=== PATIENT | female | born 1970 | race Caucasian/White ===

== ENCOUNTER 2017-01-22 15:15 | Emergency (ER) | payer BC ==
[2017-01-22 15:23] VITALS: BP 150/70
[2017-01-22] MEDS ORDERED: Benzocaine 20% Oral Spray 59.2 ML Canister MUCMEM ONE (15:30)
[2017-01-22] MEDS ORDERED: Lidocaine 2% Viscous Solution 15 ML Cup PO ONE (15:30)
[2017-01-22] MEDS ORDERED: Acetaminophen 325 MG Tab PO ONE (15:30)
--- NOTE | 2017-01-22 15:35 | EDM.PDOC ---
ED HPI ENT - General Chief Complaint: ENT Problem Stated Complaint: EAR INFECTION IN RIGHT EAR Time Seen by Provider: 01/22/17 15:29 Source of Information: Reports: Patient History Limitations: Reports: No limitations - History of Present Illness INITIAL COMMENTS - FREE TEXT/NARRATIVE: 46 yo white female c/o right sided maxillary toothache. Pt. s/p recent dental work. Pt. 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 [No Known Home Meds] 12/31/14 [History] Social & Family History - Tobacco Use Smoking Status *Q: Current Some Day Smoker Years of Tobacco use: 20 Packs/Tins Daily: 0.1 Used Tobacco, but Quit: Yes Month Tobacco Last Used: 01/22 Second Hand Smoke Exposure: No - Caffeine Use Caffeine Use: Reports: Coffee, Soda - Alcohol Use Days Per Week of Alcohol Use: 0 - Recreational Drug Use Recreational Drug Use: No ED ROS ENT - Review of Systems Review Of Systems: See Below Constitutional: Reports: no symptoms HEENT: Reports: Dental pain (right lataral maxillary ), Ear pain (right ear) Respiratory: Reports: No Symptoms Cardiovascular: Reports: No symptoms Endocrine: Reports: no symptoms GI/Abdominal: Reports: No symptoms : Reports: no symptoms Musculoskeletal: Reports: no symptoms Skin: Reports: no symptoms Neurological: Reports: No Symptoms Psychiatric: Reports: No symptoms Hematologic/Lymphatic: Reports: no symptoms Immunologic: Reports: no symptoms ED EXAM, ENT - Physical Exam Exam: See Below Exam Limited By: No limitations General Appearance: alert, WD/WN, no apparent distress Eye Exam: bilateral eye: PERRL Ears: normal external exam, normal canal, normal TMs Nose: normal inspection Mouth/Throat: Normal inspection, Dental tenderness (right maxillary gingival tenderness w/ swelling) Head: atraumatic Neck: normal inspection, supple Respiratory/Chest: no respiratory distress, lungs clear Cardiovascular: normal peripheral pulses, regular rate, rhythm GI/Abdominal: normal bowel sounds, soft Back: normal inspection Extremities: normal inspection Neurological: alert, oriented, CN II-XII intact Psychiatric: normal affect, normal mood Skin: Warm, Dry, Intact, Normal color Lymphatic: no adenopathy Course - Vital Signs Text/Narrative:: discussed with patient Last Recorded V/S: Last Vital Signs Temp 36.7 C 01/22/17 15:22 Pulse 85 01/22/17 15:22 Resp 20 01/22/17 15:22 BP 150/70 H 01/22/17 15:22 Pulse Ox 99 01/22/17 15:22 Departure - Departure Time of Disposition: 15:35 Disposition: Home, Self-Care 01 Condition: good Clinical Impression: Gingivitis, Otalgia, right ear Forms: ED Department Discharge Additional Instructions: Good Oral Hygiene Use Toothballs as directed For pain take Tylenol Extra Strength 500mg QID Continue taking your Clindamycin Antibiotic 300mg QID F/U w/ Dentist
== END 2017-01-22 15:42 | disposition home or self-care (01) ==
LOC: DL.ED 15:15
DX: K05.10 Chronic gingivitis, plaque induced (principal); H92.01 Otalgia, right ear
CPT/HCPCS: 99282; A9270

== ENCOUNTER 2017-06-04 14:53 | Observation (INO) | payer BC ==
[2017-06-04] MEDS: Sodium Chloride 0.9% 500 ML IV STA ×2 (15:48→15:57)
[2017-06-04 16:10] LABS: CHLORIDE,CL 101 mmol/L (101-111); SODIUM,NA 135 mmol/L (135-145)
--- NOTE | 2017-06-04 16:35 | EDM.PDOC ---
ED HPI GENERAL MEDICAL PROBLEM - General Chief Complaint: Fever Stated Complaint: [place] OR INFLUENZA Time Seen by Provider: 06/04/17 15:50 Source of Information: Reports: Patient History Limitations: Reports: No Limitations - History of Present Illness INITIAL COMMENTS - FREE TEXT/NARRATIVE: 47 yo female presents with 2 day history of diarrhea and vomiting with generalized body aches. States that she has not been able to tolerate food but has been attempting to push fluids. No other complaints currently. Onset Date: 06/02/17 Duration: Constant, Getting Worse Location: Reports: Generalized Quality: Reports: Ache Severity: Moderate Improves with: Reports: None Worsens with: Reports: Movement Context: Reports: Activity Associated Symptoms: Reports: Fever/Chills, Headaches, Loss of Appetite, Malaise , Nausea/Vomiting Treatments RRT: Reports: Acetaminophen 10 Pain Score (Numeric/FACES): 10 - Related Data Allergies Allergy/AdvReac Type Severity Reaction Status Date / Time No Known Allergies Allergy Verified 01/30/15 02:35 Home Meds: Home Meds . 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 Musculoskeletal History: Reports: None Neurological History: Reports: None Psychiatric History: Reports: None Endocrine/Metabolic History: Reports: None Hematologic History: Reports: None Immunologic History: Reports: None Oncologic (Cancer) History: Reports: None Dermatologic History: Reports: None - Infectious Disease History Infectious Disease History: Reports: None - Past Surgical History Head Surgeries/Procedures: Reports: None Female Surgical History: Reports: Hysterectomy Social & Family History - Family History Family Medical History: Noncontributory - Tobacco Use Smoking Status *Q: Current Some Day Smoker Years of Tobacco use: 15 Packs/Tins Daily: 0 Used Tobacco, but Quit: Yes Month Tobacco Last Used: 01/22 Second Hand Smoke Exposure: No - Caffeine Use Caffeine Use: Reports: None - Alcohol Use Days Per Week of Alcohol Use: 0 - Recreational Drug Use Recreational Drug Use: No ED ROS GENERAL - Review of Systems Review Of Systems: ROS reveals no pertinent complaints other than HPI. ED EXAM, GI/ABD - Physical Exam Exam: See Below Exam Limited By: No Limitations General Appearance: Alert, WD/WN, No Apparent Distress Eyes: Bilateral: Normal Appearance, EOMI Nose: Normal Inspection, Normal Mucosa, No Blood Throat/Mouth: Normal Inspection, Normal Lips, Normal Teeth, Normal Gums, Normal Oropharynx, Normal Voice, No Airway Compromise Neck: Normal Inspection, Supple, Non-Tender, Full Range of Motion Respiratory/Chest: No Respiratory Distress, Lungs Clear, Normal Breath Sounds, No Accessory Muscle Use, Chest Non-Tender Cardiovascular: Normal Peripheral Pulses, Regular Rate, Rhythm, No Edema, No Gallop, No JVD, No Murmur, No Rub GI/Abdominal Exam: Normal Bowel Sounds, Soft, No Organomegaly, No Abnormal Bruit , No Mass, Pelvis Stable, Distended, Tender Back Exam: Normal Inspection, Full Range of Motion, NT Extremities: Normal Inspection, Normal Range of Motion, Non-Tender, Normal Capillary Refill, No Pedal Edema Neurological: Alert, Oriented, CN II-XII Intact, Normal Cognition, Normal Gait, Normal Reflexes, No Motor/Sensory Deficits Skin Exam: Warm, Dry, Intact, Normal Color, No Rash Course - Vital Signs Last Recorded V/S: Last Vital Signs Temp 100.4 F 06/04/17 15:21 Pulse 129 H 06/04/17 15:21 Resp 20 06/04/17 15:21 BP 131/76 06/04/17 15:21 Pulse Ox 98 06/04/17 15:21 - Orders/Labs/Meds Orders: Active Orders 24 hr Category Date Time Status Abdomen Pelvis w Cont [CT] Urgent Exams 06/04/17 18:37 Ordered Abdomen Series w Chest 1V [CR] Urgent Exams 06/04/17 16:35 Taken CULTURE BLOOD [BC] Stat Lab 06/04/17 15:36 Received CULTURE BLOOD [BC] Stat Lab 06/04/17 15:42 Received CULTURE URINE [RM] Stat Lab 06/04/17 16:56 Received [place] VIRUS IGM [REF] Stat Lab 06/04/17 15:36 Received Iopamidol [Isovue-300 (61%)] Med 06/04/17 18:43 Once 100 ml IVPUSH ONETIME ONE Sodium Chloride 0.9% [Saline Flush] Med 06/04/17 15:29 Active 10 ml FLUSH ASDIRECTED PRN Blood Culture x2 Reflex Set [OM.PC] Stat Oth 06/04/17 15:30 Ordered Saline Lock Insert [OM.PC] Stat Oth 06/04/17 15:29 Ordered Medication Orders Sodium Chloride (Saline Flush) 10 ml FLUSH ASDIRECTED PRN PRN Reason: Keep Vein Open Last Admin: 06/04/17 17:59 Dose: 10 ml Labs: Laboratory Tests 06/04/17 06/04/17 06/04/17 Range/Units 15:36 15:36 15:36 WBC 16.7 H (5.0-10.0) 10^3/uL RBC 4.58 (4.2-5.4) 10^6/uL Hgb 13.5 (12.0-16.0) g/dL Hct 41.0 (37.0-47.0) % MCV 89.5 (80-100) fL MCH 29.5 (27.0-34.0) pg MCHC 32.9 L (33.0-35.0) g/dL Plt Count 228 (150-450) 10^3/uL Neut % (Auto) 84.8 H (42.2-75.2) % Lymph % (Auto) 4.3 L (20.5-50.1) % Cam[place] % (Auto) 10.7 H (2-8) % Eos % (Auto) 0.1 L (1.0-3.0) % Baso % (Auto) 0.1 (0.0-1.0) % Sodium 135 (135-145) mmol/L Potassium 3.7 (3.6-5.0) mmol/L Chloride 101 (101-111) mmol/L Carbon Dioxide 21.0 (21.0-31.0) mmol/L Anion Gap 16.7 BUN 9 (7-18) mg/dL Creatinine 0.8 (0.6-1.3) mg/dL Est Cr Clr Drug Dosing TNP Estimated GFR (MDRD) > 60 BUN/Creatinine Ratio 11.25 Glucose 129 H (74-105) mg/dL Lactic Acid 0.9 (0.5-2.2) mmol/L Calcium 8.7 (8.4-10.2) mg/dl Total Bilirubin 0.5 (0.2-1.0) mg/dL AST 35 (10-42) IU/L ALT 59 (10-60) IU/L Alkaline Phosphatase 69 (42-121) IU/L Total Protein 7.2 (6.7-8.2) g/dl Albumin 3.5 (3.2-5.5) g/dl Globulin 3.7 Albumin/Globulin Ratio 0.95 Urine Color (YELLOW) Urine Appearance (CLEAR) Urine pH (5.0-9.0) Ur Specific Garnett (1.005-1.030) Urine Protein (NEGATIVE) Urine Glucose (UA) (NEGATIVE) Urine Ketones (NEGATIVE) Urine Occult Blood (NEGATIVE) Urine Nitrite (NEGATIVE) Urine Bilirubin (NEGATIVE) Urine Urobilinogen (0.2-1.0) mg/dL Ur Leukocyte Esterase (NEGATIVE) Urine RBC /HPF Urine WBC (0-5/HPF) /HPF Ur Epithelial Cells /HPF Urine Bacteria (0-FEW/HPF) /HPF Urine Mucus /LPF Urine HCG, Qual 06/04/17 06/04/17 Range/Units 16:56 16:56 WBC (5.0-10.0) 10^3/uL RBC (4.2-5.4) 10^6/uL Hgb (12.0-16.0) g/dL Hct (37.0-47.0) % MCV (80-100) fL MCH (27.0-34.0) pg MCHC (33.0-35.0) g/dL Plt Count (150-450) 10^3/uL Neut % (Auto) (42.2-75.2) % Lymph % (Auto) (20.5-50.1) % Cam[place] % (Auto) (2-8) % Eos % (Auto) (1.0-3.0) % Baso % (Auto) (0.0-1.0) % Sodium (135-145) mmol/L Potassium (3.6-5.0) mmol/L Chloride (101-111) mmol/L Carbon Dioxide (21.0-31.0) mmol/L Anion Gap BUN (7-18) mg/dL Creatinine (0.6-1.3) mg/dL Est Cr Clr Drug Dosing Estimated GFR (MDRD) BUN/Creatinine Ratio Glucose (74-105) mg/dL Lactic Acid (0.5-2.2) mmol/L Calcium (8.4-10.2) mg/dl Total Bilirubin (0.2-1.0) mg/dL AST (10-42) IU/L ALT (10-60) IU/L Alkaline Phosphatase (42-121) IU/L Total Protein (6.7-8.2) g/dl Albumin (3.2-5.5) g/dl Globulin Albumin/Globulin Ratio Urine Color Yellow (YELLOW) Urine Appearance Slightly cloudy (CLEAR) Urine pH 6.0 (5.0-9.0) Ur Specific Garnett 1.010 (1.005-1.030) Urine Protein Negative (NEGATIVE) Urine Glucose (UA) Negative (NEGATIVE) Urine Ketones Negative (NEGATIVE) Urine Occult Blood Small H (NEGATIVE) Urine Nitrite Negative (NEGATIVE) Urine Bilirubin Negative (NEGATIVE) Urine Urobilinogen 0.2 (0.2-1.0) mg/dL Ur Leukocyte Esterase Trace H (NEGATIVE) Urine RBC 5-10 H /HPF Urine WBC 10-20 H (0-5/HPF) /HPF Ur Epithelial Cells Moderate H /HPF Urine Bacteria Moderate H (0-FEW/HPF) /HPF Urine Mucus Few H /LPF Urine HCG, Qual Negative Meds: Medications Generic Name Dose Route Start Last Admin Trade Name Freq PRN Reason Stop Dose Admin Sodium Chloride 10 ml 06/04/17 15:29 06/04/17 17:59 Saline Flush FLUSH 10 ml ASDIRECTED PRN Administration Keep Vein Open Discontinued Medications Generic Name Dose Route Start Last Admin Trade Name Freq PRN Reason Stop Dose Admin Sodium Chloride 500 mls @ 1,000 mls/hr 06/04/17 15:29 06/04/17 15:57 Normal Saline IV 06/04/17 15:58 Not Given .BOLUS STA Ketorolac Tromethamine 30 mg 06/04/17 17:22 06/04/17 17:57 Toradol IM 06/04/17 17:23 30 mg ONETIME ONE Administration Trimethoprim/Sulfamethoxazole 1 tab 06/04/17 18:28 06/04/17 18:33 Septra Ds PO 06/04/17 18:29 1 tab ONETIME ONE Administration - Radiology Interpretation Free Text/Narrative:: multiple air fluid levels and dilated loops of bowel per radiology, can not exclude ileus or partial obstruction. - Re-Assessments/Exams Free Text/Narrative Re-Assessment/Exam: 06/04/17 18:[address] Dowmi who request at CT scan. Agrees to admit for observation. Departure - Departure Time of Disposition: 18:44 Disposition: Refer to Observation Condition: Good Clinical Impression: Ileus - Discharge Information Forms: ED Department Discharge - My Orders Last 24 Hours: My Active Orders 06/04/17 15:29 Sodium Chloride 0.9% [Saline Flush] 10 ml FLUSH ASDIRECTED PRN Saline Lock Insert [OM.PC] Stat 06/04/17 15:30 Blood Culture x2 Reflex Set [OM.PC] Stat 06/04/17 15:36 CULTURE BLOOD [BC] Stat [place] [place] VIRUS IGM [REF] Stat 06/04/17 15:42 CULTURE BLOOD [BC] Stat 06/04/17 16:35 Abdomen Series w Chest 1V [CR] Urgent 06/04/17 16:56 CULTURE URINE [RM] Stat 06/04/17 18:37 Abdomen Pelvis w Cont [CT] Urgent 06/04/17 18:43 Iopamidol [Isovue-300 (61%)] 100 ml IVPUSH ONETIME ONE - Assessment/Plan Last 24 Hours: My Active Orders 06/04/17 15:29 Sodium Chloride 0.9% [Saline Flush] 10 ml FLUSH ASDIRECTED PRN Saline Lock Insert [OM.PC] Stat 06/04/17 15:30 Blood Culture x2 Reflex Set [OM.PC] Stat 06/04/17 15:36 CULTURE BLOOD [BC] Stat [place] VIRUS IGM [REF] Stat 06/04/17 15:42 CULTURE BLOOD [BC] Stat 06/04/17 16:35 Abdomen Series w Chest 1V [CR] Urgent 06/04/17 16:56 CULTURE URINE [RM] Stat 06/04/17 18:37 Abdomen Pelvis w Cont [CT] Urgent 06/04/17 18:43 Iopamidol [Isovue-300 (61%)] 100 ml IVPUSH ONETIME ONE
[2017-06-04] MEDS ORDERED: Ketorolac 30 MG/ML SDV IM ONE (17:22)
[2017-06-04] MEDS: Sodium Chloride 0.9% 10 ML Syringe FLUSH PRN ×2 (17:59→20:25)
[2017-06-04] MEDS ORDERED: Sulfamethoxazole/Trimethoprim 800-160 MG Tab PO ONE (18:28)
[2017-06-04] MEDS ORDERED: Iopamidol 612 MG/ML 100 ML Bottle IVPUSH ONE (18:43)
[2017-06-04 19:37] VITALS: BP 136/83
[2017-06-04] MEDS ORDERED: Pantoprazole 40 MG Tab.CR PO SCH (20:15)
[2017-06-04] MEDS ORDERED: Zolpidem 5 MG Tab PO PRN (20:22)
[2017-06-04] MEDS ORDERED: Morphine 2 MG/ML Syringe IVPUSH PRN (20:22)
[2017-06-04] MEDS ORDERED: oxyCODONE 5 MG Tab PO PRN (20:22)
[2017-06-04] MEDS ORDERED: Sodium Chloride 0.9% 10 ML Syringe FLUSH PRN (20:22)
[2017-06-04] MEDS ORDERED: Ondansetron 4 MG Tab.DIS PO PRN (20:22)
[2017-06-04] MEDS ORDERED: Ondansetron 4 MG/2 ML SDV IVPUSH PRN (20:22)
[2017-06-04] MEDS ORDERED: Acetaminophen 325 MG Tab PO PRN (20:22)
[2017-06-04] MEDS ORDERED: cefTRIAXone 1 GM in Sodium Chloride 0.9% 50 ML IV SCH (20:30)
--- NOTE | 2017-06-04 21:07 | PCM.HP ---
H&P History of Present Illness - General Date of Service: 06/04/17 Admit Problem/Dx: Admission Diagnosis/Problem Admission Diagnosis/Problem Diarrhea Source of Information: Patient - History of Present Illness Initial Comments - Free Text/Narative: The patient is a 47-year-old lady who has history of seasonal allergies. The patient came to the emergency room complaining of fever, chills, nausea and vomiting. The patient has been complaining of on and off abdominal pain for about a month. She had a day of diarrhea about 3 days ago that has resolved. The stool was watery. Not black, not bloody. On the day of admission the patient has been experiencing subjective fever, nausea and vomiting. She has no urinary burning but "feels warm urine". Feels bloated and generalized abdominal pain. Complains of headache. She feels stuffy nose that has been chronic and has been taking allergy medication for. 10 Pain Score (Numeric/FACES): 10 - Related Data Allergies/Adverse Reactions: Allergies Allergy/AdvReac Type Severity Reaction Status Date / Time No Known Allergies Allergy Verified 01/30/15 02:35 Home Medications: Home Meds . 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 OB/BYN History: 2 nvd Musculoskeletal History: Reports: Arthritis, Fibromyalgia Neurological History: Reports: Concussion Psychiatric History: Reports: Depression Endocrine/Metabolic History: Reports: None Hematologic History: Reports: None Immunologic History: Reports: None Oncologic (Cancer) History: Reports: None Dermatologic History: Reports: None - Infectious Disease History Infectious Disease History: Reports: Chicken Pox - Past Surgical History Head Surgeries/Procedures: Reports: None HEENT Surgical History: Reports: None Respiratory Surgical History: Reports: None GI Surgical History: Reports: None Female Surgical History: Reports: Hysterectomy Musculoskeletal Surgical History: Reports: None Social & Family History - Family History Family Medical History: Noncontributory - Tobacco Use Smoking Status *Q: Current Some Day Smoker Years of Tobacco use: 28 Packs/Tins Daily: 1 Used Tobacco, but Quit: Yes Month Tobacco Last Used: 01/22 Second Hand Smoke Exposure: No - Caffeine Use Caffeine Use: Reports: None - Alcohol Use Days Per Week of Alcohol Use: 0 - Recreational Drug Use Recreational Drug Use: No H&P Review of Systems - Review of Systems: Review Of Systems: See Below General: Reports: Fever, Chills, Malaise, Weakness Pulmonary: Denies: Shortness of Breath Cardiovascular: Denies: Chest Pain Gastrointestinal: Reports: Abdominal Pain, Nausea, Vomiting Genitourinary: Reports: Burning. Denies: Dysuria, Frequency Psychiatric: Denies: Confusion Exam - Exam Exam: See Below - Vital Signs Vital Signs: Last Vital Signs Temp 38.6 C H 06/04/17 19:32 Pulse 116 H 06/04/17 19:32 Resp 16 06/04/17 19:32 BP 136/83 06/04/17 19:32 Pulse Ox 100 06/04/17 19:32 Weight: 45.994 kg - Exam Quality Assessment: Other (The patient is alert and oriented but very poor historian.) General: Alert, Oriented Neck: Supple Lungs: Clear to Auscultation, Normal Respiratory Effort Cardiovascular: Regular Rate, Regular Rhythm GI/Abdominal Exam: Normal Bowel Sounds, Soft, Tender (Moderately diffusely tender). No: Guarding, Rigid, Rebound Extremities: No Pedal Edema Skin: Warm, Dry, Intact Neuro Extensive - Mental Status: Alert, Oriented x3, Normal Mood/Affect - Patient Data Result Diagrams: 06/04/17 15:36 06/04/17 15:36 *Q Meaningful Use (ADM) - VTE *Q VTE Criteria *Q: - Stroke *Q Stroke Criteria *Q: - AMI *Q AMI Criteria *Q: Problem List Initiated/Reviewed/Updated: Yes Orders Last 24hrs: Active Orders 24 hr Category Date Time Status Patient Status [ADT] Routine ADT 06/04/17 20:11 Ordered Antiembolic Devices [RC] PER UNIT ROUTINE Care 06/04/17 20:23 Ordered Oxygen Therapy [RC] PRN Care 06/04/17 20:11 Ordered Peripheral IV Care [RC] . DIRECTED Care 06/04/17 20:23 Ordered Up With Assistance [RC] ASDIRECTED Care 06/04/17 20:11 Ordered Up ad Rody [RC] ASDIRECTED Care 06/04/17 20:11 Ordered VTE/DVT Education [RC] PER UNIT ROUTINE Care 06/04/17 20:11 Ordered Vital Signs [RC] Q4H Care 06/04/17 20:11 Ordered Clear Liquid Diet [DIET] Diet 06/04/17 Breakfast Ordered BASIC METABOLIC PANEL,BMP [CHEM] AM Lab 06/05/17 05:15 Ordered C DIFFICILE TOXIN BY PCR [MREF] Routine Lab 06/04/17 20:09 Uncollected CBC WITH AUTO DIFF [HEME] AM Lab 06/05/17 05:15 Ordered Acetaminophen [Tylenol] Med 06/04/17 20:22 Ordered 650 mg PO Q4H PRN Heparin Sodium Med 06/04/17 22:00 Ordered 5,000 units SUBCUT Q8HR Morphine Med 06/04/17 20:22 Ordered 1 mg IVPUSH Q2H PRN Ondansetron [Zofran ODT] Med 06/04/17 20:22 Ordered 4 mg PO Q6H PRN Ondansetron [Zofran] Med 06/04/17 20:22 Ordered 4 mg IVPUSH Q6H PRN Pantoprazole [ProTONIX] Med 06/04/17 20:15 Ordered 40 mg PO BIDAC Sodium Chloride 0.9% [Saline Flush] Med 06/04/17 20:22 Ordered 10 ml FLUSH ASDIRECTED PRN Zolpidem [Ambien] Med 06/04/17 20:22 Ordered 5 mg PO BEDTIME PRN cefTRIAXone [Rocephin] 1 gm Med 06/04/17 20:30 Active Sodium Chloride 0.9% [Normal Saline] 50 ml IV Q24H oxyCODONE Med 06/04/17 20:22 Ordered 5 mg PO Q4H PRN Antiembolic Hose [OM.PC] Per Unit Routine Oth 06/04/17 20:14 Ordered Peripheral IV Insertion Adult [OM.PC] Routine Oth 06/04/17 20:11 Ordered Resuscitation Status Routine Resus Stat 06/04/17 20:11 Ordered Medication Orders Acetaminophen (Tylenol) 650 mg PO Q4H PRN PRN Reason: Pain (Mild 1-3)/fever Heparin Sodium (Porcine) (Heparin Sodium) 5,000 units SUBCUT Q8HR ALBERTO Ceftriaxone Sodium 1 gm/ (Sodium Chloride) 50 mls @ 100 mls/hr IV Q24H ALBERTO Last Admin: 06/04/17 20:24 Dose: 100 mls/hr Morphine Sulfate (Morphine) 1 mg IVPUSH Q2H PRN PRN Reason: Pain (severe 7-10) Last Admin: 06/04/17 20:44 Dose: 1 mg Ondansetron HCl (Zofran Odt) 4 mg PO Q6H PRN PRN Reason: nausea, able to take PO Ondansetron HCl (Zofran) 4 mg IVPUSH Q6H PRN PRN Reason: Nausea/Vomiting Oxycodone HCl (Oxycodone) 5 mg PO Q4H PRN PRN Reason: Pain (moderate 4-6) Pantoprazole Sodium (Protonix) 40 mg PO BIDAC ALBERTO Last Admin: 06/04/17 20:26 Dose: 40 mg Sodium Chloride (Saline Flush) 10 ml FLUSH ASDIRECTED PRN PRN Reason: Keep Vein Open Last Admin: 06/04/17 20:25 Dose: 10 ml Admin: 06/04/17 17:59 Dose: 10 ml Sodium Chloride (Saline Flush) 10 ml FLUSH ASDIRECTED PRN PRN Reason: Keep Vein Open Zolpidem Tartrate (Ambien) 5 mg PO BEDTIME PRN PRN Reason: Sleep Assessment/Plan Comment:: #1 the patient presented with nausea vomiting, fever Appears to have sepsis due to urinary tract infection Will obtain blood culture and urine culture Start the patient on ceftriaxone #2 abdominal pain, nausea and vomiting The patient is very poor historian is difficult to get that good history on x- ray of the abdomen there was question of dilated bowel loops We will obtain CT of the abdomen for further evaluation #3 we will hydrate the patient follow electrolytes Use antiemetics as needed Clear liquid diet #4 DVT prophylaxis will be with subcutaneous heparin
--- NOTE | 2017-06-04 21:13 | PCM.DCSUM1 ---
Discharge Summary - Hospital Course Free Text/Narrative:: The patient is a 47-year-old lady who presented with fever, nausea vomiting, generalized malaise abdominal discomfort. The patient was admitted and started treatment for urinary tract infection with ceftriaxone 1 g Since the patient was also complaining of abdominal pain be obtained a CT of the abdomen with IV contrast without by mouth contrast. This described "hydronephrosis right kidney with ureterectasis of the proximal half of the right ureter" The patient did complain of right sided abdomen and groin pain. There was no stone noted on the CT There was no mass noted on CT to cause the obstruction With the concern of hydronephrosis of unknown etiology and urinary tract infection I have contacted urology in [place]. Discussed with Dr. Toure. He recommended IV antibiotics and given the significant risk of sepsis with possible urinary tract obstruction and infection he recommended percutaneous nephrostomy by IR. Since urology service and IR is not available in our Hospital I have contacted hospitalists at [facility] in [place] who accepted the patient for transfer. Discussed the above with the patient. Will request ambulance transfer to continue IV fluid and close monitoring. - Discharge Data Discharge Date: 06/04/17 Discharge Disposition: DC/Tfer to Acute Hospital 02 Condition: Good - Patient Instructions Diet: NPO Activity: Bedrest - Discharge Plan Home Medications: Home Meds . [No Known Home Meds] 12/31/14 [History] - Discharge Summary/Plan Comment DC Time >30 min.: Yes (Arranging transfer, discussion with dr. Geronimo, Dr. Toure, pt) - General Info Date of Service: 06/04/17 - Review of Systems General: Reports: Fever, Weakness Pulmonary: Denies: Shortness of Breath Cardiovascular: Denies: Chest Pain, Palpitations Gastrointestinal: Reports: Abdominal Pain Neurological: Denies: Confusion - Patient Data Vitals - Most Recent: Last Vital Signs Temp 38.6 C H 06/04/17 19:32 Pulse 116 H 06/04/17 19:32 Resp 16 06/04/17 19:32 BP 136/83 06/04/17 19:32 Pulse Ox 100 06/04/17 19:32 Weight - Most Recent: 45.994 kg Med Orders - Current: Current Medications Acetaminophen (Tylenol) 650 mg PO Q4H PRN PRN Reason: Pain (Mild 1-3)/fever Heparin Sodium (Porcine) (Heparin Sodium) 5,000 units SUBCUT Q8HR [facility] Ceftriaxone Sodium 1 gm/ (Sodium Chloride) 50 mls @ 100 mls/hr IV Q24H [facility] Last Admin: 06/04/17 20:24 Dose: 100 mls/hr Morphine Sulfate (Morphine) 1 mg IVPUSH Q2H PRN PRN Reason: Pain (severe 7-10) Last Admin: 06/04/17 20:44 Dose: 1 mg Ondansetron HCl (Zofran Odt) 4 mg PO Q6H PRN PRN Reason: nausea, able to take PO Ondansetron HCl (Zofran) 4 mg IVPUSH Q6H PRN PRN Reason: Nausea/Vomiting Oxycodone HCl (Oxycodone) 5 mg PO Q4H PRN PRN Reason: Pain (moderate 4-6) Pantoprazole Sodium (Protonix) 40 mg PO BIDAC [facility] Last Admin: 06/04/17 20:26 Dose: 40 mg Sodium Chloride (Saline Flush) 10 ml FLUSH ASDIRECTED PRN PRN Reason: Keep Vein Open Last Admin: 06/04/17 20:25 Dose: 10 ml Sodium Chloride (Saline Flush) 10 ml FLUSH ASDIRECTED PRN PRN Reason: Keep Vein Open Zolpidem Tartrate (Ambien) 5 mg PO BEDTIME PRN PRN Reason: Sleep Discontinued Medications Sodium Chloride (Normal Saline) 500 mls @ 1,000 mls/hr IV .BOLUS STA Stop: 06/04/17 15:58 Last Admin: 06/04/17 15:57 Dose: Not Given Iopamidol (Isovue-300 (61%)) 100 ml IVPUSH ONETIME ONE Stop: 06/04/17 18:44 Last Admin: 06/04/17 18:55 Dose: 100 ml Ketorolac Tromethamine (Toradol) 30 mg IM ONETIME ONE Stop: 06/04/17 17:23 Last Admin: 06/04/17 17:57 Dose: 30 mg Trimethoprim/Sulfamethoxazole (Septra Ds) 1 tab PO ONETIME ONE Stop: 06/04/17 18:29 Last Admin: 06/04/17 18:33 Dose: 1 tab - Exam General: Reports: Alert, Oriented Lungs: Reports: Clear to Auscultation Cardiovascular: Reports: Regular Rate, Regular Rhythm GI/Abdominal Exam: Tender (Moderate, diffuse) Extremities: No Pedal Edema Skin: Reports: Warm, Dry *Q Meaningful Use (DIS) - VTE *Q VTE Criteria *Q: - Stroke *Q Stroke Criteria *Q: - AMI *Q AMI Criteria *Q:
[2017-06-04] MEDS ORDERED: Heparin Sodium 5,000 Units/ML Vial SUBCUT SCH (22:00)
== END 2017-06-04 22:06 ==
LOC: DL.ED 14:53 → DL.MS 19:04
PROVIDERS: ADMIT Internal Medicine; ATTEND Internal Medicine
DX: N39.0 Urinary tract infection, site not specified (principal); N13.30 Unspecified hydronephrosis; M19.90 Unspecified osteoarthritis, unspecified site; M79.7 Fibromyalgia; F17.210 Nicotine dependence, cigarettes, uncomplicated; Z90.710 Acquired absence of both cervix and uterus
CPT/HCPCS: 36415; 74022; 74177; 80053; 81001; 81025; 83605; 85025; 86788; 87040; 87086; 87088; 87186; 87804; 96360; 96372; 99285; A9270; J0696; J1885; J2270; J7050; Q9967; 96361; 96374; G0378

== ENCOUNTER 2017-07-11 03:13 | Emergency (ER) | payer BC ==
[2017-07-11 03:25] VITALS: BP 125/68
--- NOTE | 2017-07-11 03:47 | EDM.PDOC ---
ED HPI GENERAL MEDICAL PROBLEM - General Chief Complaint: Lower Extremity Injury/Pain Stated Complaint: R THIGH PAIN Time Seen by Provider: 07/11/17 03:38 Source of Information: Reports: Patient History Limitations: Reports: No Limitations - History of Present Illness INITIAL COMMENTS - FREE TEXT/NARRATIVE: c/o right upper thigh groin pain since placement of ureteral stent on . No fever or chills. Notes generalized malaise, lowback pain, body aches, loss of appetite and nausea. Had been given hydrocodone following procedure. Patient notes took one and made her feel funny so flushed the resst. Has been trying tylenol without relief. 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 Musculoskeletal History: Reports: None Neurological History: Reports: None Psychiatric History: Reports: None Endocrine/Metabolic History: Reports: None Hematologic History: Reports: None Immunologic History: Reports: None Oncologic (Cancer) History: Reports: None Dermatologic History: Reports: None - Infectious Disease History Infectious Disease History: Reports: None - Past Surgical History Head Surgeries/Procedures: Reports: None Female Surgical History: Reports: Hysterectomy Social & Family History - Family History Family Medical History: Noncontributory - Tobacco Use Smoking Status *Q: Current Some Day Smoker Years of Tobacco use: 15 Packs/Tins Daily: 0 Used Tobacco, but Quit: Yes Month Tobacco Last Used: 01/22 Second Hand Smoke Exposure: No - Caffeine Use Caffeine Use: Reports: None - Alcohol Use Days Per Week of Alcohol Use: 0 - Recreational Drug Use Recreational Drug Use: No Review of Systems - Review of Systems Review Of Systems: ROS reveals no pertinent complaints other than HPI. ED EXAM, GENERAL - Physical Exam Exam: See Below Exam Limited By: No Limitations General Appearance: Alert, Mild Distress Eye Exam: Bilateral Eye: EOMI Ears: Normal External Exam, Normal TMs Nose: Normal Inspection Throat/Mouth: Normal Inspection Head: Atraumatic, Normocephalic Neck: Normal Inspection Respiratory/Chest: No Respiratory Distress, Lungs Clear, Normal Breath Sounds Cardiovascular: Normal Peripheral Pulses, Regular Rate, Rhythm GI/Abdominal: Normal Bowel Sounds, Soft, No Distention, Tender (RLQ) Back Exam: Other (bilateral sacral tenderness, mild SI discomfort on right with deep palpation) Extremities: Normal Inspection, Normal Range of Motion, Leg Pain (right upper lateral thigh ) Neurological: Alert, Oriented, Normal Cognition Psychiatric: Normal Affect, Normal Mood Course - Vital Signs Last Recorded V/S: Last Vital Signs Temp 97.3 F 07/11/17 03:21 Pulse 70 07/11/17 03:21 Resp 20 07/11/17 03:21 BP 125/68 07/11/17 03:21 Pulse Ox 96 07/11/17 03:21 - Orders/Labs/Meds Orders: Active Orders 24 hr Category Date Time Status CULTURE BLOOD [BC] Stat Lab 07/11/17 03:55 Received CULTURE URINE [RM] Stat Lab 07/11/17 04:02 Received Labs: Laboratory Tests 07/11/17 07/11/17 07/11/17 Range/Units 03:55 03:55 03:55 WBC 12.0 H (5.0-10.0) 10^3/uL RBC 4.77 (4.2-5.4) 10^6/uL Hgb 13.5 (12.0-16.0) g/dL Hct 43.3 (37.0-47.0) % MCV 90.8 (80-100) fL MCH 28.3 (27.0-34.0) pg MCHC 31.2 L (33.0-35.0) g/dL Plt Count 426 D (150-450) 10^3/uL Neut % (Auto) 66.7 (42.2-75.2) % Lymph % (Auto) 22.7 (20.5-50.1) % [place] % (Auto) 7.1 (2-8) % Eos % (Auto) 3.3 H (1.0-3.0) % Baso % (Auto) 0.2 (0.0-1.0) % Sodium 137 (135-145) mmol/L Potassium 4.2 (3.6-5.0) mmol/L Chloride 102 (101-111) mmol/L Carbon Dioxide 27.0 (21.0-31.0) mmol/L Anion Gap 12.2 BUN 14 (7-18) mg/dL Creatinine 0.7 (0.6-1.3) mg/dL Est Cr Clr Drug Dosing TNP Estimated GFR (MDRD) > 60 BUN/Creatinine Ratio 20.00 Glucose 111 H (74-105) mg/dL Lactic Acid 0.9 (0.5-2.2) mmol/L Calcium 9.5 (8.4-10.2) mg/dl Total Bilirubin 0.3 (0.2-1.0) mg/dL AST 29 (10-42) IU/L ALT 34 (10-60) IU/L Alkaline Phosphatase 69 (42-121) IU/L Total Protein 6.9 (6.7-8.2) g/dl Albumin 3.5 (3.2-5.5) g/dl Globulin 3.4 Albumin/Globulin Ratio 1.03 Amylase 50 (28-100) U/L Lipase 39 (22-51) U/L Urine Color (YELLOW) Urine Appearance (CLEAR) Urine pH (5.0-9.0) Ur Specific [place] (1.005-1.030) Urine Protein (NEGATIVE) Urine Glucose (UA) (NEGATIVE) Urine Ketones (NEGATIVE) Urine Occult Blood (NEGATIVE) Urine Nitrite (NEGATIVE) Urine Bilirubin (NEGATIVE) Urine Urobilinogen (0.2-1.0) mg/dL Ur Leukocyte Esterase (NEGATIVE) Urine RBC /HPF Urine WBC (0-5/HPF) /HPF Ur Epithelial Cells /HPF Urine Bacteria (0-FEW/HPF) /HPF Urinalysis Comment Urine HCG, Qual 07/11/17 07/11/17 Range/Units 04:02 04:02 WBC (5.0-10.0) 10^3/uL RBC (4.2-5.4) 10^6/uL Hgb (12.0-16.0) g/dL Hct (37.0-47.0) % MCV (80-100) fL MCH (27.0-34.0) pg MCHC (33.0-35.0) g/dL Plt Count (150-450) 10^3/uL Neut % (Auto) (42.2-75.2) % Lymph % (Auto) (20.5-50.1) % [place] % (Auto) (2-8) % Eos % (Auto) (1.0-3.0) % Baso % (Auto) (0.0-1.0) % Sodium (135-145) mmol/L Potassium (3.6-5.0) mmol/L Chloride (101-111) mmol/L Carbon Dioxide (21.0-31.0) mmol/L Anion Gap BUN (7-18) mg/dL Creatinine (0.6-1.3) mg/dL Est Cr Clr Drug Dosing Estimated GFR (MDRD) BUN/Creatinine Ratio Glucose (74-105) mg/dL Lactic Acid (0.5-2.2) mmol/L Calcium (8.4-10.2) mg/dl Total Bilirubin (0.2-1.0) mg/dL AST (10-42) IU/L ALT (10-60) IU/L Alkaline Phosphatase (42-121) IU/L Total Protein (6.7-8.2) g/dl Albumin (3.2-5.5) g/dl Globulin Albumin/Globulin Ratio Amylase (28-100) U/L Lipase (22-51) U/L Urine Color Yellow (YELLOW) Urine Appearance Turbid (CLEAR) Urine pH 6.0 (5.0-9.0) Ur Specific [place] 1.025 (1.005-1.030) Urine Protein 30 H (NEGATIVE) Urine Glucose (UA) Negative (NEGATIVE) Urine Ketones Negative (NEGATIVE) Urine Occult Blood Large H (NEGATIVE) Urine Nitrite Negative (NEGATIVE) Urine Bilirubin Negative (NEGATIVE) Urine Urobilinogen 0.2 (0.2-1.0) mg/dL Ur Leukocyte Esterase Moderate H (NEGATIVE) Urine RBC >100 H /HPF Urine WBC >100 H (0-5/HPF) /HPF Ur Epithelial Cells Many H /HPF Urine Bacteria Many H (0-FEW/HPF) /HPF Urinalysis Comment Urine HCG, Qual Negative Meds: Medications Discontinued Medications Generic Name Dose Route Start Last Admin Trade Name Freq PRN Reason Stop Dose Admin Sodium Chloride 1,000 mls @ 999 mls/hr 07/11/17 04:59 07/11/17 05:11 Normal Saline IV 07/11/17 05:59 999 mls/hr .BOLUS ONE Administration Levofloxacin/Dextrose 750 mg/ 150 mls @ 100 mls/hr 07/11/17 05:03 07/11/17 05 :25 Premix IV 07/11/17 06:32 100 mls/hr ONETIME ONE Administration Iopamidol 75 ml 07/11/17 04:10 07/11/17 04:35 Isovue-300 (61%) IVPUSH 07/11/17 04:11 75 ml ONETIME ONE Administration Ketorolac Tromethamine 30 mg 07/11/17 04:59 07/11/17 05:16 Toradol IVPUSH 07/11/17 05:00 30 mg ONETIME ONE Administration Ondansetron HCl 4 mg 07/11/17 04:59 07/11/17 05:12 Zofran IV 07/11/17 05:00 4 mg ONETIME ONE Administration - Radiology Interpretation Free Text/Narrative:: CT abdomen: Hepatomegaly, hepatic steatosis, cholelithiasis, moderate right hydronephrosis and proximal right hydroureter with interval placement. Right pyelitis/ureteritis. Two 1.7 left adenexal cystic lesion, Incomplete urinary bladder distention with prominenet wall. of a right ureteral stent, Departure - Departure Time of Disposition: 06:00 Disposition: Home, Self-Care 01 Condition: Fair Clinical Impression: Pyelitis Pain due to ureteral stent Qualifiers: Encounter type: initial encounter Qualified Code(s): T83.84XA - Pain due to genitourinary prosthetic devices, implants and grafts, initial encounter - Discharge Information Instructions: Pyelonephritis, Adult, [id number] Forms: ED Department Discharge Additional Instructions: cipro 500mg one twice daily for one week zofran 4mg ODT one every 4 hours as needed for nausea percocet 5/325 one every 6 hours as needed for discomfort Diflucan 150mg one today and repeat in 3 days Follow up with urologist today Urgent follow up if increased pain and fever
[2017-07-11] MEDS ORDERED: Iopamidol 612 MG/ML 75 ML Bottle IVPUSH ONE (04:10)
[2017-07-11 04:22] LABS: CHLORIDE,CL 102 mmol/L (101-111); SODIUM,NA 137 mmol/L (135-145)
[2017-07-11] MEDS ORDERED: Sodium Chloride 0.9% 1,000 ML IV ONE (04:59)
[2017-07-11] MEDS ORDERED: Ondansetron 4 MG/2 ML SDV IV ONE (04:59)
[2017-07-11] MEDS ORDERED: Ketorolac 30 MG/ML SDV IVPUSH ONE (04:59)
[2017-07-11] MEDS ORDERED: Levofloxacin/Dextrose 5%-Water 750 MG in Premix Bag 1 BAG IV ONE (05:03)
== END 2017-07-11 07:10 | disposition home or self-care (01) ==
LOC: DL.ED 03:13
DX: T83.84XA Pain due to genitourinary prosthetic devices, implants and grafts, initial encounter (principal); N12 Tubulo-interstitial nephritis, not specified as acute or chronic; N13.30 Unspecified hydronephrosis; R16.0 Hepatomegaly, not elsewhere classified; K80.20 Calculus of gallbladder without cholecystitis without obstruction; Z96.0 Presence of urogenital implants; Z90.710 Acquired absence of both cervix and uterus; Z87.891 Personal history of nicotine dependence
CPT/HCPCS: 36415; 74177; 80053; 81001; 81025; 82150; 83605; 83690; 85025; 87040; 87086; 96365; 96366; 96375; 99284; J1885; J1956; J2405; J7030; Q9967

== ENCOUNTER 2017-11-25 22:20 | Emergency (ER) | payer BC | END 2017-11-25 22:43 | disposition left against medical advice (07) | LOC: DL.ED 22:20 | DX: Z53.21 Procedure and treatment not carried out due to patient leaving prior to being seen by health care provider (principal) ==

== ENCOUNTER 2017-12-03 15:44 | Emergency (ER) | payer BC ==
[2017-12-03 15:57] VITALS: BP 142/74
[2017-12-03] MEDS ORDERED: Azithromycin 250 MG Tab PO ONE (16:11)
--- NOTE | 2017-12-03 16:13 | EDM.PDOC ---
ED HPI GENERAL MEDICAL PROBLEM - General Chief Complaint: ENT Problem Stated Complaint: SICK [id number] Time Seen by Provider: 12/03/17 16:00 Source of Information: Reports: Patient History Limitations: Reports: No Limitations - History of Present Illness INITIAL COMMENTS - FREE TEXT/NARRATIVE: Pt presents to the ER with c/o left ear pain and sinus congestion and pain. She states this has been going on for about 3 days. Patient denies N/V/D, chest pain , SOB. She states a few days ago she had fever and chills. She admits to a non- productive cough. Patient states she just does not feel well. Onset: Gradual Location: Reports: Head, Face Quality: Reports: Ache, Throbbing Severity: Moderate Improves with: Reports: None Worsens with: Reports: None Associated Symptoms: Reports: Cough, Fever/Chills, Headaches, Loss of Appetite Left Ear Pain Score (Numeric/FACES): 10 - Related Data Allergies Allergy/AdvReac Type Severity Reaction Status Date / Time No Known Allergies Allergy Verified 07/11/17 03:25 Home Meds: Home Meds . [No Known Home Meds] 12/31/14 [History] Past Medical History HEENT History: Reports: None Cardiovascular History: Reports: None Respiratory History: Reports: None Gastrointestinal History: Reports: None Genitourinary History: Reports: None Other Genitourinary History: ureteral stent placement, recent ureteroscopy [employer]ER History: Reports: None Other OB/BYN History: 2 nvd Musculoskeletal History: Reports: None Neurological History: Reports: None Psychiatric History: Reports: None Endocrine/Metabolic History: Reports: None Hematologic History: Reports: None Immunologic History: Reports: None Oncologic (Cancer) History: Reports: None Dermatologic History: Reports: None - Infectious Disease History Infectious Disease History: Reports: None - Past Surgical History Head Surgeries/Procedures: Reports: None Female Surgical History: Reports: Hysterectomy Social & Family History - Family History Family Medical History: Noncontributory - Tobacco Use Smoking Status *Q: Never Smoker Years of Tobacco use: 15 Packs/Tins Daily: 0 Used Tobacco, but Quit: Yes Month Tobacco Last Used: 01/22 Second Hand Smoke Exposure: No - Caffeine Use Caffeine Use: Reports: Coffee, Soda - Alcohol Use Days Per Week of Alcohol Use: 0 - Recreational Drug Use Recreational Drug Use: No ED ROS ENT - Review of Systems Review Of Systems: ROS reveals no pertinent complaints other than HPI. ED EXAM, ENT - Physical Exam Exam: See Below Exam Limited By: No Limitations General Appearance: Alert, WD/WN, No Apparent Distress Eye Exam: Bilateral Eye: EOMI, Normal Inspection, PERRL Ears: Normal External Exam, Hearing Grossly Normal, TM Dullness, TM Fluid Nose: Normal Inspection, Clear Rhinorrhea Mouth/Throat: Normal Inspection, Normal Oropharynx, Tonsillar Erythema, Tonsillar Swelling (+2) Head: Atraumatic, Normocephalic Neck: Normal Inspection, Supple, Non-Tender, Full Range of Motion Respiratory/Chest: No Respiratory Distress, Lungs Clear, Normal Breath Sounds, No Accessory Muscle Use, Chest Non-Tender Cardiovascular: Normal Peripheral Pulses, Regular Rate, Rhythm, No Edema, No Gallop, No JVD, No Murmur, No Rub GI/Abdominal: Normal Bowel Sounds, Soft, Non-Tender, No Organomegaly, No Distention, No Abnormal Bruit, No Mass (Female) Exam: Deferred Rectal (Female) Exam: Deferred Back: Normal Inspection, Full Range of Motion Extremities: Normal Inspection, Normal Range of Motion, Non-Tender, No Pedal Edema, Normal Capillary Refill Neurological: Alert, Oriented, CN II-XII Intact, Normal Cognition, Normal Gait, Normal Reflexes, No Motor/Sensory Deficits Psychiatric: Normal Affect, Normal Mood, Other (flight of thoughts) Skin: Warm, Dry, Intact, Normal Color, No Rash Lymphatic: Adenopathy (+2 bilateral anterior cervical adenopathy) Course - Vital Signs Last Recorded V/S: Last Vital Signs Temp 100.8 F H 12/03/17 15:56 Pulse 108 H 12/03/17 15:56 Resp 16 12/03/17 15:56 BP 142/74 H 12/03/17 15:56 Pulse Ox 98 12/03/17 15:56 - Orders/Labs/Meds Meds: Medications Discontinued Medications Generic Name Dose Route Start Last Admin Trade Name Freq PRN Reason Stop Dose Admin Azithromycin 500 mg 12/03/17 16:11 Zithromax PO 12/03/17 16:12 ONETIME ONE Departure - Departure Time of Disposition: 16:12 Disposition: Home, Self-Care 01 Condition: Fair Clinical Impression: Otalgia of left ear Sinusitis Qualifiers: Sinusitis location: unspecified location Chronicity: acute Recurrence: not specified as recurrent Qualified Code(s): J01.90 - Acute sinusitis, unspecified - Discharge Information Instructions: Sinusitis, Adult, [id number] Forms: ED Department Discharge Additional Instructions: RX: Azithromycin, Flonase Use Zyrtec over the counter as directed Tylenol or ibuprofen as directed for pain Follow up with your primary care facility
== END 2017-12-03 16:27 | disposition home or self-care (01) ==
LOC: DL.ED 15:44
DX: J01.90 Acute sinusitis, unspecified (principal); Z87.891 Personal history of nicotine dependence
CPT/HCPCS: 99283; A9270

== ENCOUNTER 2018-12-12 02:48 | Emergency (ER) | payer BC ==
[2018-12-12] MEDS ORDERED: Albuterol/Ipratropium 3.0-0.5 MG/3 ML Neb Soln NEB ONE (03:19)
--- NOTE | 2018-12-12 03:26 | EDM.PDOC ---
ED HPI GENERAL MEDICAL PROBLEM - General Chief Complaint: General Stated Complaint: FLU, MUSCLES SORE [phone] Time Seen by Provider: 12/12/18 02:56 Source of Information: Reports: Patient, RN Notes Reviewed History Limitations: Reports: No Limitations - History of Present Illness INITIAL COMMENTS - FREE TEXT/NARRATIVE: ED with c/o cough for past 3 days with fever and body aches. Question if flu. Did not receive flu shot this year. No recent medication for fever, Nothing for cough. Stated just started feel good enough to come to ED. Generalized Pain Score (Numeric/FACES): 10 - Related Data Allergies Allergy/AdvReac Type Severity Reaction Status Date / Time No Known Allergies Allergy Verified 12/12/18 02:59 Home Meds: Home Meds . 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 Musculoskeletal History: Reports: None Neurological History: Reports: None Psychiatric History: Reports: None Endocrine/Metabolic History: Reports: None Hematologic History: Reports: None Immunologic History: Reports: None Oncologic (Cancer) History: Reports: None Dermatologic History: Reports: None - Infectious Disease History Infectious Disease History: Reports: None - Past Surgical History Head Surgeries/Procedures: Reports: None Female Surgical History: Reports: Hysterectomy Social & Family History - Family History Family Medical History: Noncontributory - Caffeine Use Caffeine Use: Reports: Coffee, Soda ED ROS GENERAL - Review of Systems Review Of Systems: See Below Constitutional: Reports: Fever, Malaise. Denies: Decreased Appetite HEENT: Reports: Throat Pain (mild) Respiratory: Reports: Cough. Denies: Shortness of Breath, Wheezing Cardiovascular: Reports: No Symptoms Endocrine: Reports: No Symptoms GI/Abdominal: Reports: No Symptoms Musculoskeletal: Reports: Other (generalize muscle and joint pain) Skin: Reports: No Symptoms Neurological: Reports: No Symptoms ED EXAM, GENERAL - Physical Exam Exam: See Below Exam Limited By: No Limitations General Appearance: Alert, No Apparent Distress, Anxious Eye Exam: Bilateral Eye: Abnormal EOM, Abnormal Pupil, EOMI, Normal Inspection Ears: Normal External Exam, Hearing Grossly Normal Nose: Normal Inspection Throat/Mouth: Normal Inspection, Normal Oropharynx, Normal Voice, No Airway Compromise Head: Atraumatic, Normocephalic Neck: Normal Inspection, Full Range of Motion. No: Lymphadenopathy (L), Lymphadenopathy (R) Respiratory/Chest: No Respiratory Distress, Lungs Clear, Normal Breath Sounds, Accessory Muscle Use (loose non productive bronchial cough) GI/Abdominal: Normal Bowel Sounds Back Exam: Normal Inspection, Full Range of Motion, Other (ureterolostomy tube right flank) Extremities: Normal Inspection, Normal Range of Motion Neurological: Alert, Oriented Psychiatric: Anxious Skin Exam: Warm, Dry, Intact, Normal Color Course - Vital Signs Last Recorded V/S: Last Vital Signs Temp 99.6 F 12/12/18 04:15 Pulse 99 12/12/18 04:15 Resp 17 12/12/18 04:15 BP 121/74 12/12/18 04:15 Pulse Ox 99 12/12/18 04:15 - Orders/Labs/Meds Orders: Active Orders 24 hr Category Date Time Status RT Aerosol Therapy [RC] ASDIRECTED Care 12/12/18 03:19 Active CXR [Chest 1V Frontal] [CR] Urgent Exams 12/12/18 03:12 Taken CULTURE STREP A CONFIRMATION [] Stat Lab 12/12/18 02:52 Results STREP SCRN A RAPID W CULT CONF [] Stat Lab 12/12/18 02:52 Results Labs: Laboratory Tests 12/12/18 12/12/18 Range/Units 03:22 03:22 WBC 8.2 (5.0-10.0) 10^3/uL RBC 4.65 (4.2-5.4) 10^6/uL Hgb 13.4 (12.0-16.0) g/dL Hct 40.8 (37.0-47.0) % MCV 87.7 D (80-100) fL MCH 28.8 (27.0-34.0) pg MCHC 32.8 L (33.0-35.0) g/dL Plt Count 269 D (150-450) 10^3/uL Neut % (Auto) 69.3 (42.2-75.2) % Lymph % (Auto) 16.6 L (20.5-50.1) % [place] % (Auto) 6.9 (2-8) % Eos % (Auto) 7.0 H (1.0-3.0) % Baso % (Auto) 0.2 (0.0-1.0) % Sodium 135 (135-145) mmol/L Potassium 3.3 L (3.6-5.0) mmol/L Chloride 104 (101-111) mmol/L Carbon Dioxide 24.0 (21.0-31.0) mmol/L Anion Gap 10.3 BUN 14 (7-18) mg/dL Creatinine 0.9 (0.6-1.3) mg/dL Est Cr Clr Drug Dosing 66.73 mL/min Estimated GFR (MDRD) > 60 BUN/Creatinine Ratio 15.55 Glucose 114 H (74-105) mg/dL Calcium 7.8 L D (8.4-10.2) mg/dl Total Bilirubin 0.5 (0.2-1.0) mg/dL AST 66 H (10-42) IU/L ALT 109 H (10-60) IU/L Alkaline Phosphatase 86 (42-121) IU/L Total Protein 6.8 (6.7-8.2) g/dl Albumin 3.0 L (3.2-5.5) g/dl Globulin 3.8 Albumin/Globulin Ratio 0.79 Meds: Medications Discontinued Medications Generic Name Dose Route Start Last Admin Trade Name Freq PRN Reason Stop Dose Admin Albuterol/Ipratropium 3 ml 12/12/18 03:19 12/12/18 03:24 Duoneb 3.0-0.5 Mg/3 Ml NEB 12/12/18 03:20 3 ml ONETIME ONE Administration Benzonatate 200 mg 12/12/18 03:39 12/12/18 03:46 Tessalon Perles PO 12/12/18 03:40 200 mg ONETIME ONE Administration - Radiology Interpretation Free Text/Narrative:: [facility] Final Radiology Report Call: [phone] assistance Online chat: [email or web address] Name: JASVIR OLVERA Age: 48Years F Date: 12/12/2018 SSN: -- : 1970 Study: XR CHEST 1 VIEW Requesting Physician: KOBY LORENZO Images: 1 Addl Studies: Provided Clinical History: Contrast: Contrast Medium: Contrast Amount: Contrast Method: CONFIDENTIALITY STATEMENT This report is intended only for use by the referring physician, and only in accordance with law. If you received this in error, call [phone]. Page 1 of 1 EXAM: XR Chest, 1 View EXAM DATE/TIME: 12/12/2018 3:17 AM CLINICAL HISTORY: 48 years old, female; Signs and symptoms; Cough TECHNIQUE: XR of the chest, 1 view. COMPARISON: CR Chest 2V 12/31/2014 8:30 PM FINDINGS: Lungs: Unremarkable. No consolidation. Pleural space: Unremarkable. No evidence of pneumothorax. Heart/Mediastinum: Unremarkable. Heart size within normal limits for technique. Bones/joints: Unremarkable. IMPRESSION: No acute findings. Thank you for allowing us to participate in the care of your patient. Dictated and Authenticated by: Dwayne Dalton MD 12/12/2018 3:46 AM Central Time ([place] & [place]) Departure - Departure Time of Disposition: 03:51 Disposition: Home, Self-Care 01 Condition: Good Clinical Impression: Acute bronchitis - Discharge Information *PRESCRIPTION DRUG MONITORING PROGRAM REVIEWED*: Not Applicable *COPY OF PRESCRIPTION DRUG MONITORING REPORT IN PATIENT JOVON: Not Applicable Instructions: Acute Bronchitis, Adult, [id number] Referrals: Stephon Mack DO [Primary Care Provider] - Forms: ED Department Discharge Additional Instructions: alternate tylenol and ibuprofen every 4 hours as needed for fever or body aches tesselon 2oomg every 8 hours as needed for cough otc cough and cold per package instructions - My Orders Last 24 Hours: My Active Orders 12/12/18 02:52 CULTURE STREP A CONFIRMATION [RM] Stat STREP SCRN A RAPID W CULT CONF [RM] Stat 12/12/18 03:12 CXR [Chest 1V Frontal] [CR] Urgent 12/12/18 03:19 RT Aerosol Therapy [RC] ASDIRECTED - Assessment/Plan Last 24 Hours: My Active Orders 12/12/18 02:52 CULTURE STREP A CONFIRMATION [RM] Stat STREP SCRN A RAPID W CULT CONF [RM] Stat 12/12/18 03:12 CXR [Chest 1V Frontal] [CR] Urgent 12/12/18 03:19 RT Aerosol Therapy [RC] ASDIRECTED
[2018-12-12] MEDS ORDERED: Benzonatate 100 MG Cap PO ONE (03:39)
[2018-12-12 04:02] LABS: ANION GAP 10.3; CHLORIDE,CL 104 mmol/L (101-111); SODIUM,NA 135 mmol/L (135-145)
[2018-12-12 04:22] VITALS: BP 121/74
== END 2018-12-12 04:15 | disposition home or self-care (01) ==
LOC: DL.ED 02:48
DX: J20.9 Acute bronchitis, unspecified (principal)
CPT/HCPCS: 36415; 71045; 80053; 85025; 87081; 87430; 87804; 94640; 99283; A9270; J7620-GY

== ENCOUNTER 2019-03-08 23:34 | Emergency (ER) | payer BC ==
[2019-03-08 23:45] VITALS: BP 125/74; PULSE 92
[2019-03-09 00:42] LABS: ANION GAP 14.9; CHLORIDE,CL 103 mmol/L (101-111); SODIUM,NA 137 mmol/L (135-145)
--- NOTE | 2019-03-09 01:13 | EDM.PDOC ---
ED HPI GENERAL MEDICAL PROBLEM - General Chief Complaint: Back Pain or Injury Stated Complaint: SHORT OF BREATH AND PAIN IN BACK Time Seen by Provider: 03/09/19 01:11 Source of Information: Reports: Patient History Limitations: Reports: No Limitations - History of Present Illness INITIAL COMMENTS - FREE TEXT/NARRATIVE: states has nephrostomy tube placed for kidney infections, see Dr Mack @ and tube been blocked for about 5 days now. today back started hurting and having urgency and fullness, and was told to come to ER. Lower Back Pain Score (Numeric/FACES): 10 - Related Data Allergies Allergy/AdvReac Type Severity Reaction Status Date / Time No Known Allergies Allergy Verified 03/08/19 23:45 Home Meds: Home Meds . 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 Musculoskeletal History: Reports: None Neurological History: Reports: None Psychiatric History: Reports: None Endocrine/Metabolic History: Reports: None Hematologic History: Reports: None Immunologic History: Reports: None Oncologic (Cancer) History: Reports: None Dermatologic History: Reports: None - Infectious Disease History Infectious Disease History: Reports: None - Past Surgical History Head Surgeries/Procedures: Reports: None Female Surgical History: Reports: Hysterectomy Social & Family History - Family History Family Medical History: Noncontributory - Tobacco Use Smoking Status *Q: Current Every Day Smoker Years of Tobacco use: 20 Packs/Tins Daily: 0.1 - Caffeine Use Caffeine Use: Reports: Coffee, Soda - Recreational Drug Use Recreational Drug Use: No ED ROS GENERAL - Review of Systems Review Of Systems: ROS reveals no pertinent complaints other than HPI. ED EXAM, RENAL/ - Physical Exam Exam: See Below Exam Limited By: No Limitations General Appearance: Alert, WD/WN, Mild Distress, Other (discomfort) Ears: Hearing Grossly Normal Throat/Mouth: Normal Voice, No Airway Compromise Head: Atraumatic Neck: Non-Tender, Full Range of Motion Respiratory/Chest: No Respiratory Distress Cardiovascular: Regular Rate, Rhythm GI/Abdominal: Soft, Non-Tender Back Exam: Other (nephrostomy tube on right without flow) Neurological: Alert, Oriented, Normal Cognition, Normal Gait, No Motor/Sensory Deficits Psychiatric: Flat Affect Skin Exam: Warm, Dry, Normal Color Lymphatic: No Adenopathy Course - Vital Signs Last Recorded V/S: Last Vital Signs Temp 37.5 C 03/08/19 23:39 Pulse 92 03/08/19 23:39 Resp 18 03/08/19 23:39 BP 125/74 03/08/19 23:39 Pulse Ox 96 03/08/19 23:39 - Orders/Labs/Meds Orders: Active Orders 24 hr Category Date Time Status CULTURE URINE [RM] Stat Lab 03/09/19 00:20 Received Labs: Laboratory Tests 03/08/19 03/08/19 03/08/19 Range/Units 23:53 23:53 23:53 WBC 8.1 (5.0-10.0) 10^3/uL RBC 4.86 (4.2-5.4) 10^6/uL Hgb 13.9 (12.0-16.0) g/dL Hct 43.4 (37.0-47.0) % MCV 89.3 (80-100) fL MCH 28.6 (27.0-34.0) pg MCHC 32.0 L (33.0-35.0) g/dL Plt Count 313 (150-450) 10^3/uL Neut % (Auto) 55.4 (42.2-75.2) % Lymph % (Auto) 30.9 (20.5-50.1) % [place] % (Auto) 9.1 H (2-8) % Eos % (Auto) 4.1 H (1.0-3.0) % Baso % (Auto) 0.5 (0.0-1.0) % Sodium 137 (135-145) mmol/L Potassium 3.9 (3.6-5.0) mmol/L Chloride 103 (101-111) mmol/L Carbon Dioxide 23.0 (21.0-31.0) mmol/L Anion Gap 14.9 BUN 20 H (7-18) mg/dL Creatinine 0.9 (0.6-1.3) mg/dL Est Cr Clr Drug Dosing 66.01 mL/min Estimated GFR (MDRD) > 60 BUN/Creatinine Ratio 22.22 Glucose 117 H (74-105) mg/dL Lactic Acid 0.7 (0.5-2.2) mmol/L Calcium 9.0 (8.4-10.2) mg/dl Total Bilirubin 0.3 (0.2-1.0) mg/dL AST 18 (10-42) IU/L ALT 24 (10-60) IU/L Alkaline Phosphatase 72 (42-121) IU/L Total Protein 7.3 (6.7-8.2) g/dl Albumin 3.7 (3.2-5.5) g/dl Globulin 3.6 Albumin/Globulin Ratio 1.03 Urine Color (YELLOW) Urine Appearance (CLEAR) Urine pH (5.0-9.0) Ur Specific [place] (1.005-1.030) Urine Protein (NEGATIVE) Urine Glucose (UA) (NEGATIVE) Urine Ketones (NEGATIVE) Urine Occult Blood (NEGATIVE) Urine Nitrite (NEGATIVE) Urine Bilirubin (NEGATIVE) Urine Urobilinogen (0.2-1.0) mg/dL Ur Leukocyte Esterase (NEGATIVE) Urine RBC /HPF Urine WBC (0-5/HPF) /HPF Ur Epithelial Cells (NOT SEEN) /HPF Urine Bacteria (0-FEW/HPF) /HPF 03/09/19 Range/Units 00:20 WBC (5.0-10.0) 10^3/uL RBC (4.2-5.4) 10^6/uL Hgb (12.0-16.0) g/dL Hct (37.0-47.0) % MCV (80-100) fL MCH (27.0-34.0) pg MCHC (33.0-35.0) g/dL Plt Count (150-450) 10^3/uL Neut % (Auto) (42.2-75.2) % Lymph % (Auto) (20.5-50.1) % [place] % (Auto) (2-8) % Eos % (Auto) (1.0-3.0) % Baso % (Auto) (0.0-1.0) % Sodium (135-145) mmol/L Potassium (3.6-5.0) mmol/L Chloride (101-111) mmol/L Carbon Dioxide (21.0-31.0) mmol/L Anion Gap BUN (7-18) mg/dL Creatinine (0.6-1.3) mg/dL Est Cr Clr Drug Dosing mL/min Estimated GFR (MDRD) BUN/Creatinine Ratio Glucose (74-105) mg/dL Lactic Acid (0.5-2.2) mmol/L Calcium (8.4-10.2) mg/dl Total Bilirubin (0.2-1.0) mg/dL AST (10-42) IU/L ALT (10-60) IU/L Alkaline Phosphatase (42-121) IU/L Total Protein (6.7-8.2) g/dl Albumin (3.2-5.5) g/dl Globulin Albumin/Globulin Ratio Urine Color Yellow (YELLOW) Urine Appearance Cloudy (CLEAR) Urine pH 5.5 (5.0-9.0) Ur Specific [place] >= 1.030 (1.005-1.030) Urine Protein 100 H (NEGATIVE) Urine Glucose (UA) Negative (NEGATIVE) Urine Ketones Negative (NEGATIVE) Urine Occult Blood Large H (NEGATIVE) Urine Nitrite Positive H (NEGATIVE) Urine Bilirubin Negative (NEGATIVE) Urine Urobilinogen 0.2 (0.2-1.0) mg/dL Ur Leukocyte Esterase Small H (NEGATIVE) Urine RBC 5-10 H /HPF Urine WBC Packed H (0-5/HPF) /HPF Ur Epithelial Cells Few (NOT SEEN) /HPF Urine Bacteria Many H (0-FEW/HPF) /HPF Meds: Medications Discontinued Medications Generic Name Dose Route Start Last Admin Trade Name Freq PRN Reason Stop Dose Admin Nitrofurantoin Macrocrystals 100 mg 03/09/19 01:39 Macrobid PO 03/09/19 01:40 ONETIME ONE - Re-Assessments/Exams Free Text/Narrative Re-Assessment/Exam: 03/09/19 01:[address] Mack urology @ who rec' pt need to see IR in am. pt states she has to see Hernandez in a week and wondered if it would be better to wait. I advised pt not to wait and call IR in am [phone]. Departure - Departure Time of Disposition: 01:43 Disposition: Home, Self-Care 01 Condition: Fair Clinical Impression: Obstructed nephrostomy tube - Discharge Information Forms: ED Department Discharge Additional Instructions: 1) call [facility] tomorrow morning 8am [phone] for nephrostomy tube blockage. rx given; macrobid 100mg bid x 20 - My Orders Last 24 Hours: My Active Orders 03/09/19 00:20 CULTURE URINE [] Stat - Assessment/Plan Last 24 Hours: My Active Orders 03/09/19 00:20 CULTURE URINE [] Stat
[2019-03-09] MEDS ORDERED: Nitrofurantoin Monohydrate/Macrocrystalline 100 MG Cap PO ONE (01:39)
== END 2019-03-09 01:52 | disposition home or self-care (01) ==
LOC: DL.ED 23:34
DX: T83.092A Other mechanical complication of nephrostomy catheter, initial encounter (principal); F17.210 Nicotine dependence, cigarettes, uncomplicated
CPT/HCPCS: 36415; 80053; 81001; 83605; 85025; 87086; 87088; 87186; 99283; A9270

== ENCOUNTER 2020-06-14 04:30 | Emergency (ER) | payer BC ==
[2020-06-14 04:38] VITALS: BP 109/83; PULSE 81
--- NOTE | 2020-06-14 05:44 | EDM.PDOC ---
ED HPI GENERAL MEDICAL PROBLEM - General Chief Complaint: ENT Problem Stated Complaint: THROAT SORE, LUMP, abdominal bloating Time Seen by Provider: 06/14/20 05:00 Source of Information: Reports: Patient, RN History Limitations: Reports: No Limitations - History of Present Illness INITIAL COMMENTS - FREE TEXT/NARRATIVE: 50 year female with a reported history of kidney disease who present to the ER with multiple complaints. Patient reports abdominal bloating and diarrhea x 5 episode that began one week ago. She reports it came on suddenly and she was flushed and dizzy for about 15 minutes one week ago. the dizzy episode was once and resolved. she denies any bloody stools, nausea and vomiting. She also reports she has a lump in her throat which is intermittent with tingli ng in the back of her neck. She denies any symptoms of URI. 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 Musculoskeletal History: Reports: None Neurological History: Reports: None Psychiatric History: Reports: None Endocrine/Metabolic History: Reports: None Hematologic History: Reports: None Immunologic History: Reports: None Oncologic (Cancer) History: Reports: None Dermatologic History: Reports: None - Infectious Disease History Infectious Disease History: Reports: None - Past Surgical History Head Surgeries/Procedures: Reports: None Female Surgical History: Reports: Hysterectomy Social & Family History - Family History Family Medical History: Noncontributory - Tobacco Use Smoking Status *Q: Current Some Day Smoker Years of Tobacco use: 25 Packs/Tins Daily: 0.1 Second Hand Smoke Exposure: Yes - Caffeine Use Caffeine Use: Reports: Coffee, Soda - Recreational Drug Use Recreational Drug Use: No ED ROS GENERAL - Review of Systems Review Of Systems: See Below Constitutional: Reports: No Symptoms HEENT: Reports: No Symptoms Respiratory: Reports: No Symptoms Cardiovascular: Reports: No Symptoms Endocrine: Reports: No Symptoms GI/Abdominal: Reports: Other (note HPI). Denies: Flatus : Reports: No Symptoms Musculoskeletal: Reports: No Symptoms Skin: Reports: No Symptoms Neurological: Reports: No Symptoms Psychiatric: Reports: No Symptoms Hematologic/Lymphatic: Reports: No Symptoms Immunologic: Reports: No Symptoms ED EXAM, GI/ABD - Physical Exam Exam: See Below Exam Limited By: No Limitations General Appearance: Alert, WD/WN, No Apparent Distress Ears: Normal External Exam, Normal Canal, Hearing Grossly Normal, Normal TMs Nose: Normal Inspection, Normal Mucosa, No Blood Throat/Mouth: Normal Inspection, Normal Lips, Normal Teeth, Normal Gums, Normal Oropharynx, Normal Voice, No Airway Compromise Head: Atraumatic, Normocephalic Neck: Normal Inspection, Supple, Non-Tender, Full Range of Motion Respiratory/Chest: No Respiratory Distress, Lungs Clear, Normal Breath Sounds, No Accessory Muscle Use, Chest Non-Tender Cardiovascular: Normal Peripheral Pulses, Regular Rate, Rhythm, No Edema, No Gallop, No JVD, No Murmur, No Rub GI/Abdominal Exam: Normal Bowel Sounds, Soft, Non-Tender, No Organomegaly, No Distention, No Abnormal Bruit, No Mass, Pelvis Stable (Female) Exam: Deferred Rectal (Female) Exam: Deferred Back Exam: Normal Inspection Extremities: Normal Inspection, Normal Range of Motion, Non-Tender, Normal Capillary Refill, No Pedal Edema Neurological: Alert, Oriented, No Motor/Sensory Deficits Psychiatric: Normal Affect, Normal Mood Skin Exam: Warm Lymphatic: No Adenopathy Course - Vital Signs Last Recorded V/S: Last Vital Signs Temp 97 F 06/14/20 04:33 Pulse 81 06/14/20 04:33 Resp 18 06/14/20 04:33 BP 109/83 06/14/20 04:33 Pulse Ox 100 06/14/20 04:33 - Orders/Labs/Meds Orders: Active Orders 24 hr Category Date Time Status CULTURE STREP A CONFIRMATION [RM] Stat Lab 06/14/20 04:34 Results STREP SCRN A RAPID W CULT CONF [RM] Stat Lab 06/14/20 04:34 Results Labs: Laboratory Tests 06/14/20 06/14/20 06/14/20 Range/Units 06:00 06:00 06:00 WBC 11.1 H (5.0-10.0) 10^3/uL RBC 4.97 (4.2-5.4) 10^6/uL Hgb 14.6 (12.0-16.0) g/dL Hct 45.4 (37.0-47.0) % MCV 91.3 D (80-100) fL MCH 29.4 (27.0-34.0) pg MCHC 32.2 L (33.0-35.0) g/dL Plt Count 248 (150-450) 10^3/uL Neut % (Auto) 62.4 (42.2-75.2) % Lymph % (Auto) 26.1 (20.5-50.1) % [place] % (Auto) 9.4 H (2-8) % Eos % (Auto) 1.8 (1.0-3.0) % Baso % (Auto) 0.3 (0.0-1.0) % ESR 4 (0-20) mm/hr Sodium 139 (136-145) mmol/L Potassium 3.7 (3.5-5.1) mmol/L Chloride 103 (98-107) mmol/L Carbon Dioxide 26 (21-32) mmol/L Anion Gap 13.7 H (7-13) mEq/L BUN 12 (7-18) mg/dL Creatinine 0.79 (0.55-1.02) mg/dL Est Cr Clr Drug Dosing 71.26 mL/min Estimated GFR (MDRD) > 60 BUN/Creatinine Ratio 15.2 (No establ ref range) Glucose 99 (74-99) mg/dL Calcium 8.5 (8.5-10.1) mg/dL Total Bilirubin 0.4 (0.2-1.0) mg/dL AST 13 L (15-37) U/L ALT 27 (14-59) U/L Alkaline Phosphatase 70 (46-116) U/L C-Reactive Protein 0.4 (0.0-0.9) mg/dL Total Protein 7.3 (6.4-8.2) g/dL Albumin 3.6 (3.4-5.0) g/dL Globulin 3.7 Albumin/Globulin Ratio 1.0 - Re-Assessments/Exams Free Text/Narrative Re-Assessment/Exam: Reviewed exan findings, labs and Ct results with patient. Encourage her to folllow up with PCP for referrals. Departure - Departure Time of Disposition: 06:57 Disposition: Home, Self-Care 01 Condition: Good Clinical Impression: Ureteral dilatation, Gallstones Diarrhea Qualifiers: Diarrhea type: unspecified type Qualified Code(s): R19.7 - Diarrhea, unspecified Abdominal pain Qualifiers: Abdominal location: upper abdomen, unspecified Qualified Code(s): R10.10 - Upper abdominal pain, unspecified - Discharge Information Instructions: Cholelithiasis, [id number], Food Choices to Help Relieve Diarrhea, Adult, Diarrhea, Adult, [id number] Forms: ED Department Discharge Additional Instructions: Push fluids and rest Try OTC immodium Take CT scan results to PCP for appropriate referral Review addition information on AVS Follow up with PCP. Sepsis Event Note (ED) - Evaluation Sepsis Screening Result: No Definite Risk - My Orders Last 24 Hours: My Active Orders 06/14/20 04:34 CULTURE STREP A CONFIRMATION [RM] Stat STREP SCRN A RAPID W CULT CONF [RM] Stat - Assessment/Plan Last 24 Hours: My Active Orders 06/14/20 04:34 CULTURE STREP A CONFIRMATION [RM] Stat STREP SCRN A RAPID W CULT CONF [RM] Stat
--- NOTE | 2020-06-14 06:13 | CT ---
PROCEDURE INFORMATION: Exam: CT Abdomen And Pelvis Without Contrast Exam date and time: 06/14/2020 5:30 AM Age: 50 years old Clinical indication: Other: Pain; Additional info: Abdominal pain, bloating, diarrhea TECHNIQUE: Imaging protocol: Computed tomography of the abdomen and pelvis without contrast. Radiation optimization: All CT scans at this facility use at least one of these dose optimization techniques: automated exposure control; mA and/or kV adjustment per patient size (includes targeted exams where dose is matched to clinical indication); or iterative reconstruction. COMPARISON: CT Abdomen Pelvis w Cont 04/23/2019 10:51 AM FINDINGS: Lungs: Mild scar and/or atelectasis is present in the right greater than left lung bases. A right upper lobe calcified granuloma is noted. Liver: The liver is normal. Gallbladder and bile ducts: A lamellated gallstone measures 3.1 x 2.1 x 2.0 cm. A 4 mm stone is present near the gallbladder neck. No pericholecystic fluid collection. No ductal dilation. Pancreas: The pancreas is normal. Spleen: The spleen is normal. Adrenals: The adrenal glands are normal. Kidneys and ureters: The kidneys are normal. No hydronephrosis or perinephric fluid collections. There is fat stranding about the right ureter, most prominent at the midportion. Distally, the right ureter is prominent, measuring up to 7 mm in diameter, at the level of the pelvic inlet. No ureteral stone is present. Stomach and bowel: The stomach and duodenum are normal. The small bowel is normal. Colon is unremarkable. Appendix: The appendix is not definitively identified. No secondary signs of appendicitis. Intraperitoneal space: Surgical clips are present along the bilateral pelvic sidewalls. Vasculature: The abdominal aorta is normal in caliber. Lymph nodes: Unremarkable. No enlarged lymph nodes. Bladder: The bladder is incompletely distended, and therefore not well evaluated. No focal wall thickening is evident. No bladder stone is seen. Reproductive: The uterus is absent. The right ovary measures 3.3 x 3.1 cm. The left ovary measures 2.6 x 1.8 cm. Bones/joints: Bones are normal for age. Soft tissues: The soft tissues are unremarkable. IMPRESSION: 1. Large gallstone (3.1 cm) without other evidence of cholecystitis. Correlate with clinical findings. 2. Possible right ureter dilation and adjacent fat stranding without urolithiasis. Correlate with clinical findings, to include evaluation for hematuria. Consider urology consultation, as indicated. CT, IVP could be appropriate. 3. The right ovary is prominent in size in comparison the left but likely within normal limits. Correlate for right lower quadrant pain and consider pelvic ultrasound, as appropriate.
[2020-06-14 06:47] LABS: ANION GAP 13.7 mEq/L (7-13); CHLORIDE,CL 103 mmol/L (98-107); SODIUM,NA 139 mmol/L (136-145)
== END 2020-06-14 07:09 | disposition home or self-care (01) ==
LOC: DL.ED 04:30
DX: K80.20 Calculus of gallbladder without cholecystitis without obstruction (principal); R19.7 Diarrhea, unspecified; N28.82 Megaloureter; F17.210 Nicotine dependence, cigarettes, uncomplicated
CPT/HCPCS: 36415; 74176; 80053; 85025; 85651; 86140; 87081; 87430; 99284-25

== ENCOUNTER 2021-10-12 19:40 | Emergency (ER) | payer BC ==
[2021-10-12 23:05] LABS: CORONAVIRUS COVID-19 NAA POSITIVE (NEGATIVE)
--- NOTE | 2021-10-13 00:01 | EDM.PDOC ---
ED HPI GENERAL MEDICAL PROBLEM - General Chief Complaint: ENT Problem Stated Complaint: FLU SYMPTOMS Time Seen by Provider: 10/12/21 23:55 Source of Information: Reports: Patient History Limitations: Reports: No Limitations - History of Present Illness INITIAL COMMENTS - FREE TEXT/NARRATIVE: This 51 yo female patient reports to the ED due to fever, chills and right sided head congestion. The patient reports her symptoms started on Tuesday and have continued to get worse throughout the week. The patient reports she is fully vaccinated and boosted for COVID. 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 Onset Date: 10/10/21 Duration: Constant Location: Reports: Head (Right sided), Generalized Quality: Reports: Ache, Dull, Pressure Severity: Moderate Improves with: Reports: None Worsens with: Reports: None Context: Reports: Other Associated Symptoms: Reports: No Other Symptoms - Related Data Allergies Allergy/AdvReac Type Severity Reaction Status Date / Time No Known Allergies Allergy Verified 10/12/21 22:30 Past Medical History HEENT History: Reports: None Cardiovascular History: Reports: None Respiratory History: Reports: None Gastrointestinal History: Reports: None Genitourinary History: Reports: Other (See Below) Other Genitourinary History: ureteral stent placement, recent ureteroscopy, kindey infection CURER FOAM RUBBER History: Reports: None Other CURER FOAM RUBBER History: 2 nvd Musculoskeletal History: Reports: None Neurological History: Reports: None Psychiatric History: Reports: None Endocrine/Metabolic History: Reports: None Hematologic History: Reports: None Immunologic History: Reports: None Oncologic (Cancer) History: Reports: None Dermatologic History: Reports: None - Infectious Disease History Infectious Disease History: Reports: None - Past Surgical History Head Surgeries/Procedures: Reports: None HEENT Surgical History: Reports: None Respiratory Surgical History: Reports: None GI Surgical History: Reports: None Female Surgical History: Reports: Hysterectomy Musculoskeletal Surgical History: Reports: None Social & Family History - Family History Family Medical History: No Pertinent Family History - Tobacco Use Tobacco Use Status *Q: Current Some Day Tobacco User Years of Tobacco use: 30 Packs/Tins Daily: 0.1 - Caffeine Use Caffeine Use: Reports: Soda - Recreational Drug Use Recreational Drug Use: No ED ROS ENT - Review of Systems Review Of Systems: Comprehensive ROS is negative, except as noted in HPI. ED EXAM, ENT - Physical Exam Exam: See Below Exam Limited By: No Limitations General Appearance: Alert, WD/WN, Moderate Distress Eye Exam: Bilateral Eye: EOMI, Normal Inspection, PERRL Ears: Normal External Exam, Normal Canal, Hearing Grossly Normal, Normal TMs Nose: Normal Inspection, Normal Mucousa, No Blood Mouth/Throat: Normal Inspection, Normal Gums, Normal Lips, Normal Oropharynx, Normal Teeth Head: Sinus Tenderness (Right sided) Neck: Normal Inspection, Supple, Non-Tender, Full Range of Motion Respiratory/Chest: No Respiratory Distress, Lungs Clear, Normal Breath Sounds, No Accessory Muscle Use, Chest Non-Tender GI/Abdominal: Normal Bowel Sounds (Female) Exam: Deferred Rectal (Female) Exam: Deferred Back: Normal Inspection, Full Range of Motion Extremities: Normal Inspection, Normal Range of Motion, Non-Tender, No Pedal Edema, Normal Capillary Refill Neurological: Alert, Oriented, CN II-XII Intact, Normal Cognition, Normal Gait, Normal Reflexes, No Motor/Sensory Deficits Psychiatric: Normal Affect, Normal Mood Skin: Warm, Dry, Intact, Normal Color, No Rash Lymphatic: No Adenopathy Course - Vital Signs Last Recorded V/S: Last Vital Signs Temp 98.4 F 10/12/21 22:34 Pulse 76 10/12/21 22:34 Resp 20 10/12/21 22:34 BP 138/73 10/12/21 22:34 Pulse Ox 96 10/12/21 22:34 - Orders/Labs/Meds Labs: Laboratory Tests 10/12/21 Range/Units 22:15 Influenza Type A RNA Negative (NEGATIVE) Influenza Type B RNA Negative (NEGATIVE) SARS-CoV-2 RNA ([facility]) Positive H (NEGATIVE) Departure - Departure Time of Disposition: 23:58 Disposition: Home, Self-Care 01 Condition: Fair Clinical Impression: COVID-19 - Discharge Information *PRESCRIPTION DRUG MONITORING PROGRAM REVIEWED*: Not Applicable *COPY OF PRESCRIPTION DRUG MONITORING REPORT IN PATIENT JOVON: Not Applicable Instructions: COVID-19: What Your Test Results Mean - CDC (07/07/2021), COVID- 19 Frequently Asked Questions, COVID-19: How to Protect Yourself and Others - CDC, COVID-19 Quarantine vs. Isolation - [facility] (07/06/2021) Forms: ED Department Discharge Care Plan Goals: The patient was advised of the examination and lab results during the visit. The patient was advised that she should quarantine for 10 days from symptom onset. The patient was advised to take Tylenol or ibuprofen for temporary symptom relief. If the patient has any additional symptoms or concerns, the patient should either return to the emergency department or contact her primary care facility. Sepsis Event Note (ED) - Focused Exam Vital Signs: Vital Signs Temp Pulse Resp BP Pulse Ox 10/12/21 22:34 98.4 F 76 20 138/73 96
[2021-10-13 01:11] VITALS: BP 143/86; PULSE 94
== END 2021-10-13 00:15 | disposition home or self-care (01) ==
LOC: DL.ED 19:40
DX: U07.1 COVID-19 (principal)
CPT/HCPCS: 0240U; 99283

== ENCOUNTER 2023-05-29 18:58 | Emergency (ER) | payer BC ==
[2023-05-29 19:21] VITALS: BP 134/63; PULSE 88
[2023-05-29] MEDS ORDERED: Ketorolac 30 MG/ML SDV IM ONE (19:52)
== END 2023-05-29 21:25 | disposition home or self-care (01) ==
LOC: DL.ED 18:58
DX: M67.472 Ganglion, left ankle and foot (principal); F17.210 Nicotine dependence, cigarettes, uncomplicated
CPT/HCPCS: 73630; 96372; 99282; 99283; J1885

== ENCOUNTER 2023-10-30 21:53 | Emergency (ER) | payer BC ==
[2023-10-30] MEDS ORDERED: Sodium Chloride 0.9% 1,000 ML IV ONE (21:56)
[2023-10-30] MEDS ORDERED: Ondansetron 4 MG/2 ML SDV IVPUSH ONE (21:56)
[2023-10-30 22:11] LABS: BASOPHILS PERCENT AUTO 0.3 % (0.0-1.0); EOSINOPHILS PERCENT AUTO 2.1 % (1.0-3.0); HEMATOCRIT 44.1 % (37.0-47.0); HEMOGLOBIN 14.2 g/dL (12.0-16.0); LYMPHOCYTES PERCENT AUTO 45.6 % (20.5-50.1); MEAN CORPUSCULAR HEMOGLOBIN 29.5 pg (27.0-34.0); MEAN CORPUSCULAR HGB CONC 32.2 g/dL (33.0-35.0); MEAN CORPUSCULAR VOLUME 91.5 fL (80-100); MONOCYTES PERCENT AUTO 8.1 % (2-8); NEUTROPHILS PERCENT AUTO 43.9 % (42.2-75.2); PLATELET COUNT,PLT 297 10^3/uL (150-450); RED BLOOD CELL COUNT 4.82 10^6/uL (4.2-5.4)
[2023-10-30 22:32] LABS: ALBUMIN 3.5 g/dL (3.4-5.0); ANION GAP 17.5 mEq/L (7-13); BILIRUBIN TOTAL 0.2 mg/dL (0.2-1.0); CREATININE 0.85 mg/dL (0.55-1.02); EST CRCL DRUG DOSING (CG) 78.1 mL/min; MAGNESIUM 2.2 mg/dL (1.8-2.4); POTASSIUM,K 3.5 mmol/L (3.5-5.1)
[2023-10-31 00:22] LABS: AMPHETAMINES,URINE NEGATIVE (NEGATIVE); BARBITURATES,URINE NEGATIVE (NEGATIVE); BENZODIAZEPINE,URINE NEGATIVE (NEGATIVE); MDMA (ECSTASY), URINE NEGATIVE (NEGATIVE); METHADONE,URINE NEGATIVE (NEGATIVE); METHAMPHETAMINES,URINE NEGATIVE (NEGATIVE); OPIATES,URINE NEGATIVE (NEGATIVE); OXYCODONE,URINE NEGATIVE (NEGATIVE); PHENCYCLIDINE,URINE NEGATIVE (NEGATIVE); TCA,URINE NEGATIVE (NEGATIVE)
[2023-10-31 00:27] LABS: APPEARANCE,URINE CLEAR (CLEAR); BILIRUBIN,URINE NEGATIVE (NEGATIVE); COLOR,URINE YELLOW (YELLOW); GLUCOSE,URINE NEGATIVE (NEGATIVE); KETONES,URINE NEGATIVE (NEGATIVE); LEUKOCYTE ESTERASE,URINE NEGATIVE (NEGATIVE); NITRITE,URINE NEGATIVE (NEGATIVE); OCCULT BLOOD,URINE NEGATIVE (NEGATIVE); PH,URINE 5.5 (5.0-9.0); PROTEIN,URINE NEGATIVE (NEGATIVE); UROBILINOGEN,URINE 0.2 mg/dL (0.2-1.0)
[2023-10-31 01:01] VITALS: BP 122/77; PULSE 80
== END 2023-10-31 00:59 | disposition home or self-care (01) ==
LOC: DL.ED 21:53
DX: R11.2 Nausea with vomiting, unspecified (principal); F10.920 Alcohol use, unspecified with intoxication, uncomplicated; F17.210 Nicotine dependence, cigarettes, uncomplicated; Z86.16 Personal history of COVID-19; Z90.710 Acquired absence of both cervix and uterus
CPT/HCPCS: 36415; 80053; 80305-QW; 80307; 81003; 83735; 85025; 96374; 99283; 99284-25; J2405; J7030

== ENCOUNTER 2025-06-01 18:34 | Emergency (ER) | payer BC ==
[2025-06-01 18:47] VITALS: BP 145/74; PULSE 84
[2025-06-01] MEDS ORDERED: Sodium Chloride 0.9% 10 ML Syringe FLUSH PRN (18:53)
[2025-06-01] MEDS: methylPREDNISolone Sodium Succinate 125 MG/2 ML SDV IVPUSH ONE (19:22)
[2025-06-01] MEDS: diphenhydrAMINE 50 MG/ML SDV IVPUSH ONE (19:22)
[2025-06-01] MEDS ORDERED: methylPREDNISolone Sodium Succinate 125 MG/2 ML SDV ONE (19:32)
[2025-06-01] MEDS ORDERED: Take Home: predniSONE 20 MG, 4 Tab Pack ONE (20:15)
[2025-06-01] MEDS: Take Home: predniSONE 20 MG, 4 Tab Pack PO ONE (20:26)
== END 2025-06-01 20:10 | disposition home or self-care (01) ==
LOC: DL.ED 18:34
DX: T63.441A Toxic effect of venom of bees, accidental (unintentional), initial encounter (principal); Z86.16 Personal history of COVID-19; Z90.710 Acquired absence of both cervix and uterus
CPT/HCPCS: 96374; 96375; 99283; A9270; J1200; J1308; J2919; J7030